=== PATIENT | male | born 1975 | race Hispanic/Latino ===

== ENCOUNTER 2019-03-24 06:29 | Emergency (ER) | payer BC, SELFPAY ==
[2019-03-24 07:03] LABS: Hemoglobin 16.9 g/dL (14.0-18.0); Mean Corpuscular HGB CONC 33.3 g/dL (32.0-36.0); Mean Corpuscular Hemoglobin 30.3 pg (27.0-31.0); Mean Corpuscular Volume 91.2 fL (78.0-98.0); Mean Platelet Volume 6.2 fL (7.4-10.4); Platelet Count 357 thou/uL (130-400); RBC Distribution Width 11.6 % (11.5-14.5); Red Blood Cell (RBC) Count 5.56 mill/uL (4.70-6.10); White Blood Cell (WBC) Count 14.7 thou/uL (4.8-10.8)
[2019-03-24 07:21] LABS: ALT (SGPT) 28 U/L (8-55); AST (SGOT) 24 U/L (5-34); Albumin 4.2 g/dL (3.5-5.0); Alkaline Phosphatase 84 U/L (40-110); Anion Gap 15 mmol/L (10-20); BUN (Urea Nitrogen) 17 mg/dL (8.9-20.6); Bilirubin, Total 0.9 mg/dL (0.2-1.2); Calc. Creatinine Clearance 0 mL/min (70-130); Calcium 9.2 mg/dL (7.8-10.44); Carbon Dioxide 26 mmol/L (22-29); Chloride 103 mmol/L (98-107); Estimated GFR-MDRD 75; Globulin 3.6 g/dL (2.4-3.5); Glucose 160 mg/dL (70-105); Potassium 4.2 mmol/L (3.5-5.1); Protein, Total 7.8 g/dL (6.0-8.3); Sodium 140 mmol/L (136-145)
[2019-03-24 07:21] LABS: Bilirubin Small (Negative); Blood, Urine Trace (Negative); Glucose, Urine (Dipstick) Negative (Negative); Leukocyte Negative (Negative); Nitrite Negative (Negative); Protein, Urine (Dipstick) 30 mg/dL (Neg-Trace); Urobilinogen 0.2 mg/dL (Less than 2)
[2019-03-24 07:22] LABS: Band 14 % (5-11); Lymphocytes 1 % (21-51); MDiff Complete? YES; Monocytes 1 % (0-10); Neutrophil 83 % (42-75); RBC Morphology Normal; Reactive Lymphocytes 1 % (0-10)
[2019-03-24] MEDS ORDERED: Ondansetron PF 4 MG/2 ML Vial ONE (07:23)
[2019-03-24] MEDS ORDERED: Morphine 4 MG/ML VIAL ONE (07:23)
[2019-03-24 07:30] LABS: Clarity Cloudy (Clear)
[2019-03-24 07:38] LABS: Bacteria/HPF None Seen HPF (None Seen); RBC/HPF 0-3 HPF (0-3); Squamous Epithelial 0-3 HPF (0-3); WBC/HPF 0-3 HPF (0-3)
--- NOTE | 2019-03-24 08:14 | CT ---
CT Abdomen Pelvis W Con History: Abdominal pain Comparison: None. Findings: Lung bases are clear. No pericardial effusion. Aortoiliac contour is nonaneurysmal. The appendix is visualized and is normal. No hydronephrosis. Adrenal glands are unremarkable. Lumbosacral position vertebra with high-grade narrowing of the L4/L5 disc with circumferential disc o steophyte complex. The pancreas unremarkable. Adrenal glands are unremarkable. Impression: No acute inflammatory process within the abdomen or pelvis.
[2019-03-24] MEDS ORDERED: Iopamidol-370 76% 500 ML 1 ML ONE (16:09)
== END 2019-03-24 10:18 | disposition home or self-care (01) ==
LOC: ERS 06:29
DX: R11.2 Nausea with vomiting, unspecified (principal); R19.7 Diarrhea, unspecified; R10.31 Right lower quadrant pain; F17.210 Nicotine dependence, cigarettes, uncomplicated
CPT/HCPCS: 74177; 80053; 81003; 81015; 83690; 85025; 96361; 96374; 96375; J2270; J2405; Q9967

== ENCOUNTER 2019-06-02 09:08 | Emergency (ER) | payer BC ==
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
== END 2019-06-02 11:13 | disposition home or self-care (01) ==
LOC: ERS 09:08
DX: J06.9 Acute upper respiratory infection, unspecified (principal); F17.210 Nicotine dependence, cigarettes, uncomplicated
CPT/HCPCS: 71046; 87804

== ENCOUNTER 2021-01-18 12:52 | Emergency (ER) | payer BC ==
[2021-01-18] MEDS ORDERED: Aspirin Chewable 81 MG TAB ONE (13:32)
[2021-01-18 14:18] LABS: #Eosinphils 0.2 thou/uL (0.0-0.7); #Lymphocytes 1.8 thou/uL (1.20-3.40); #Monocytes 0.7 thou/uL (0.11-0.59); #Neutrophils 6.2 thou/uL (1.40-6.50); %Basophils 0.4 % (0.0-1.0); %Eosinophils 1.9 % (0.0-10.0); %Lymphocytes 20.2 % (21.0-51.0); %Monocytes 7.7 % (0.0-10.0); %Neutrophils 69.9 % (42.0-75.0); Hemoglobin 15.7 g/dL (14.0-18.0); Mean Corpuscular HGB CONC 34.4 g/dL (32.0-36.0); Mean Corpuscular Volume 93.2 fL (78.0-98.0); Mean Platelet Volume 6.7 fL (7.4-10.4); Platelet Count 284 thou/uL (130-400); RBC Distribution Width 11.5 % (11.5-14.5); Red Blood Cell (RBC) Count 4.92 mill/uL (4.70-6.10); White Blood Cell (WBC) Count 8.8 thou/uL (4.8-10.8)
[2021-01-18 14:42] LABS: ALT (SGPT) 21 U/L (8-55); AST (SGOT) 19 U/L (5-34); Albumin 4.1 g/dL (3.5-5.0); Alkaline Phosphatase 78 U/L (40-110); Anion Gap 11 mmol/L (10-20); BUN (Urea Nitrogen) 15 mg/dL (8.9-20.6); Calc. Creatinine Clearance 0 mL/min (70-130); Calcium 9.7 mg/dL (7.8-10.44); Carbon Dioxide 27 mmol/L (22-29); Chloride 104 mmol/L (98-107); Globulin 3.4 g/dL (2.4-3.5); Glucose 97 mg/dL (70-105); Potassium 4.1 mmol/L (3.5-5.1); Protein, Total 7.5 g/dL (6.0-8.3); Sodium 138 mmol/L (136-145)
[2021-01-18] MEDS ORDERED: Morphine 4 MG/ML VIAL ONE (15:24)
[2021-01-19 12:04] LABS: SARS-CoV-2 PCR by NAA Not Detected (NotDetected)
== END 2021-01-18 16:17 | disposition home or self-care (01) ==
LOC: ERS 12:52
DX: J18.9 Pneumonia, unspecified organism (principal); Z20.822 Contact with and (suspected) exposure to COVID-19; F17.210 Nicotine dependence, cigarettes, uncomplicated
CPT/HCPCS: 71045; 80053; 83880; 84484; 85025; 93005; J2270; U0003; U0005